=== PATIENT | male | born 1985 | race Caucasian/White ===

== ENCOUNTER 2023-06-08 09:49 | Emergency (ER) | payer MEDICARE, MEDICAID, SELFPAY ==
[2023-06-08] VITALS (26 sets, daily range): BP systolic 114–135; BP diastolic 52–83; PULSE 60–90; RESP 15–30; TEMP 36.8; O2SAT 93–98; BMI 48.8
--- NOTE | 2023-06-08 09:50 | ECG_ITS ---
The [facility] Test Date: 2023-06-08 Pat Name: BALJIT JURADO Department: Room: - Gender: Male Relief Cook: : 1985 Requested By: [id number] Order Number: [id number] Reading MD: DIO ALVAREZ Measurements Intervals [place] Rate: 73 P: 43 MI: 150 QRS: 30 QRSD: 90 T: 1 QT: 354 QTc: 380 Interpretive Statements 1100 Sinus rhythm 4068 Nonspecific [place] abnormality 8102 Low QRS voltage in chest leads 9130 borderline ECG No previous ECG available for comparison Electronically Signed On 06-09-2023 7:12:07 EDT by DIO ALVAREZ
--- NOTE | 2023-06-08 09:50 | XR_ITS ---
The [address] [address] Patient Name: BALJIT JURADO MRN: [id number] date: 1985 Sex: M Assigned Patient Location: ER Current Patient Location: ER Accession/Order Number: [id number] Exam Date: 06/08/2023 10:10 Report Date: 06/08/2023 10:24 At the request of: EZRA RAMAN Procedure: XR chest 1V EXAM: XR chest 1V HISTORY: cp COMPARISON: 09/21/2021. TECHNIQUE: Chest X-ray, 1 view. FINDINGS: Support devices: None. Lungs/pleura: Low volumes accentuate the lung markings. No definite consolidation, effusion, or pneumothorax. Heart and mediastinum: Stable contours compared to prior examination. Bones: No acute abnormality identified. XR/XR chest 1V IMPRESSION: Low lung volumes accentuate the lung markings; no definite active disease. Electronically authenticated by: DOMENICO HUSSEIN Date: 06/08/2023 10:24
--- NOTE | 2023-06-08 09:50 | ED.GENADUL1 ---
HPI - General Adult General Chief complaint: Chest Pain Stated complaint: CHEST PAIN Time Seen by Provider: 06/08/23 09:50 History of Present Illness HPI narrative: Presents to emergency department complaining of chest pain. Patient was brought in via EMS as he was at work and developed chest pain. Patient states he has a history of chronic chest pain for which he is seeing his primary care doctor and had a Holter monitor ordered last week. He does not have an appointment until next week to follow up on those results. Patient states the insurance is not in approving a stress test. He has a family history of heart disease. He denies any history of hypercholesterolemia. He denies any palpitations. He has a history of anxiety and he has been taking medication for it. Denies any recent fever, chills, or cough. He denies any shortness of breath. Denies any lower extremity edema, or cramping. He denies any nausea, vomiting, diarrhea, constipation, abdominal pain. Denies any flank pain, hematuria, dysuria. pain isn't exacerbated by exertion. Related Data Home Medications Medication Instructions Recorded Confirmed hydrochlorothiazide 12.5 mg tablet 12.5 mg PO QDAY 06/08/23 06/08/23 hydroxyzine HCl 25 mg tablet 25 mg PO Q8H PRN anxiety 06/08/23 06/08/23 lisinopril 10 mg tablet 10 mg PO QDAY 06/08/23 06/08/23 paliperidone 6 mg tablet,extended 6 mg PO QDAY 06/08/23 06/08/23 release 24 hr venlafaxine 37.5 mg 37.5 mg PO DAILY 06/08/23 06/08/23 capsule,extended release 24 hr (Effexor XR) Allergies Allergy/AdvReac Type Severity Reaction Status Date / Time No Known Drug Allergies Allergy Verified 06/08/23 09:51 Review of Systems ROS Status of ROS 10 or more systems reviewed and unremarkable except as noted in history and below PFSH PFSH Social History Smoking status: Former smoker Exam Narrative Exam Narrative: Nurses notes and vital signs reviewed and patient is not hypoxic. General: Nontoxic, Well-appearing and in no apparent distress. Skin: Warm, dry, no pallor noted. No Rash Head: Normocephalic, atraumatic. Neck: Supple, non-tender. Eye: Pupils are equal, round and EOMI. No scleral icterus. Ears, Nose, Mouth, and Throat: TM clear, no posterior oropharynx erythema or nasal mucosal hypertrophy, uvula is mid-line Oral mucosa is moist Cardiovascular: Regular Rate and Rhythm without murmur, gallop or rub. Respiratory: No accessory muscle use or respiratory distress. Lungs are clear to auscultation, no wheezing, rales or rhonchi Chest Wall: no tenderness Back: No midline thoracic or lumbar vertebral tenderness. No CVA tenderness Musculoskeletal: normal ROM, no calf or popliteal tenderness, no lower extremity edema/swelling GI: obese, Abdomen is soft, non-distended. Normal bowel sounds. No masses appreciated. No tenderness to palpation. No rebound, guarding, or rigidity noted. Neurological: A&O x4. No cranial nerve dysfunction observed. No truncal ataxia. Moves all extremities. Sensation intact. Psychiatric: Cooperative and interactive. Anxious Constitutional Vital Signs, click to edit/add: Last Vital Signs Temp 98.2 F 06/08/23 09:54 Pulse 74 06/08/23 11:10 Resp 18 06/08/23 11:10 BP 114/52 06/08/23 11:01 Pulse Ox 97 06/08/23 11:10 O2 Del Method Room Air 06/08/23 09:54 Course Vital Signs Vital signs: Vital Signs Blood Pressure 133/83 06/08/23 09:52 Temperature 98.2 F 06/08/23 09:54 Pulse Rate 74 06/08/23 11:10 Respiratory Rate 18 06/08/23 11:10 Blood Pressure 114/52 06/08/23 11:01 Pulse Oximetry 97 06/08/23 11:10 Oxygen Delivery Method Room Air 06/08/23 09:54 Medical Decision Making MDM Narrative Medical decision making narrative: EKG #1 shows sinus rhythm 73 bpm with T-wave inversion in lead 3. Normal axis, T-wave flattening and bilaterally. EKG #2 shows sinus rhythm at 67 beats per minutes. T-wave inversion in lead 3, T-wave flattening in the lateral leads, no acute ischemic changes. Normal axis. Patient remains chest pain-free in the emergency department. Lab results are unremarkable troponin without a delta. EKG did not show any acute ischemic changes. Patient is being worked up as an outpatient. He is advised to see the primary care doctor to obtain an echocardiogram and stress test.Patient's heart score is 2. At this time the patient is without objective evidence of an acute process requiring hospitalization or inpatient management. The patient has remained hemodynamically stable. No additional indication for emergent studies at this time. I answered all questions. Discussed discharge instructions including standard anticipatory guidance and what should prompt a return to the emergency department, including if they get worse are not getting better or develops any new or concerning symptoms. I've given them specific time frame in which to follow-up, and who to follow-up with. The patient demonstrates understanding. Patient is nontoxic and stable for discharge with outpatient follow-up. This note was created with the assistance of a speech recognition program. Although the intention is to generate documents that actually reflects the content of the visit, no guarantees can be provided that every mistake has been identified and corrected by editing. Lab Data Lab results reviewed: Yes I reviewed the patient's lab results Labs: Lab Results 06/08/23 06/08/23 Range/Units 10:06 11:23 WBC 5.7 (4.0-11.0) 10^3/uL RBC 5.26 (4.70-6.10) 10^6/uL Hgb 15.2 (14.0-18.0) g/dL Hct 45.4 (42.0-54.0) % MCV 86.3 (80.0-94.0) fL MCH 28.9 (25.9-34.0) pg MCHC 33.5 (29.9-35.2) g/dL RDW 13.2 (11.0-15.0) % Plt Count 230 (150-450) 10^3/uL MPV 9.5 (9.5-13.5) fL Neut % (Auto) 62.4 (43.0-75.0) % Lymph % (Auto) 28.1 (20.5-60.0) % [place] % (Auto) 6.7 (1.7-12.0) % Eos % (Auto) 2.1 (0.9-7.0) % Baso % (Auto) 0.5 (0.2-2.0) % Neut # (Auto) 3.6 (1.4-6.5) 10^3/uL Lymph # (Auto) 1.6 (1.2-3.8) 10^3/uL [place] # (Auto) 0.4 (0.3-0.8) 10^3/uL Eos # (Auto) 0.1 (0.0-0.7) 10^3/uL Baso # (Auto) 0.0 (0.0-0.1) 10^3/uL Abs Immat Gran (auto) 0.01 (0.00-0.03) 10^3/uL Imm/Tot Granulo (auto) 0.2 (0.0-0.5) % PT 9.8 (9.0-11.6) sec INR <0.93 APTT 26.7 (22.3-36.2) sec Sodium 139 (136-145) mmol/L Potassium 4.1 (3.5-5.1) mmol/L Chloride 103 (98-107) mmol/L Carbon Dioxide 26.9 (21.0-32.0) mmol/L Anion Gap 13.2 BUN 12.0 (7.0-18.0) mg/dL Creatinine 0.84 (0.70-1.30) mg/dL Est GFR ( Amer) >60 (>=60) Est GFR (Non-Af Amer) >60 (>=60) BUN/Creatinine Ratio 14.3 Glucose 110 H (74-106) mg/dL Calcium 9.0 (8.5-10.1) mg/dL Total Bilirubin 0.5 (0.2-1.0) mg/dL AST 37 (15-37) U/L ALT 77 H (16-63) U/L Alkaline Phosphatase 75 (46-116) U/L Troponin I High Sens 4.4 <4.0 L (4.0-76.1) pg/mL Total Protein 6.9 (6.4-8.2) g/dL Albumin 4.0 (3.4-5.0) g/dL Globulin 2.9 g/dL Albumin/Globulin Ratio 1.4 ECG Data Attestation: I personally reviewed and interpreted this ECG as follows: Discharge Plan Discharge Chief Complaint: Chest Pain Clinical Impression: Chest pain Patient Disposition: Home, Self-Care Time of Disposition Decision: 12:26 Condition: Good Mode of Transportation: Private Vehicle Prescriptions / Home Meds: No Action lisinopril 10 mg tablet 10 mg PO QDAY hydroxyzine HCl 25 mg tablet 25 mg PO Q8H PRN (Reason: anxiety) hydrochlorothiazide 12.5 mg tablet 12.5 mg PO QDAY paliperidone 6 mg tablet extended release 24hr 6 mg PO QDAY venlafaxine [Effexor XR] 37.5 mg capsule,extended release 24hr 37.5 mg PO DAILY Instructions: Chest Pain (ED) Stand Alone Forms: Portal Instructions Referrals: GIORGIO COHEN APRN [Physician] - 1 week
[2023-06-08 10:11] LABS: Basophils Percent Auto 0.5 % (0.2-2.0); Eosinophils Absolute Auto 0.1 10^3/uL (0.0-0.7); Eosinophils Percent Auto 2.1 % (0.9-7.0); Hematocrit 45.4 % (42.0-54.0); Hemoglobin 15.2 g/dL (14.0-18.0); Immature Granulocytes Abs Auto 0.01 10^3/uL (0.00-0.03); Immature Granulocytes Pct Auto 0.2 % (0.0-0.5); Lymphocytes Absolute Auto 1.6 10^3/uL (1.2-3.8); Lymphocytes Percent Auto 28.1 % (20.5-60.0); Mean Corpuscular HGB Conc 33.5 g/dL (29.9-35.2); Mean Corpuscular Hemoglobin 28.9 pg (25.9-34.0); Mean Corpuscular Volume 86.3 fL (80.0-94.0); Mean Platelet Volume 9.5 fL (9.5-13.5); Monocytes Absolute Auto 0.4 10^3/uL (0.3-0.8); Monocytes Percent Auto 6.7 % (1.7-12.0); Neutrophils Absolute Auto 3.6 10^3/uL (1.4-6.5); Neutrophils Percent Auto 62.4 % (43.0-75.0); Platelet Count 230 10^3/uL (150-450); Red Blood Count 5.26 10^6/uL (4.70-6.10); Red Cell Distribution Width 13.2 % (11.0-15.0); White Blood Count 5.7 10^3/uL (4.0-11.0)
[2023-06-08 10:28] LABS: Partial Thromboplastin Time 26.7 sec (22.3-36.2); Prothrombin Time 9.8 sec (9.0-11.6)
[2023-06-08 10:29] LABS: INR <0.93
[2023-06-08 10:49] LABS: Alanine Aminotransferase 77 U/L (16-63); Albumin Globulin Ratio 1.4; Alkaline Phosphatase 75 U/L (46-116); Anion Gap 13.2; Aspartate Amino Transferase 37 U/L (15-37); BUN Creatinine Ratio 14.3; Bilirubin Total 0.5 mg/dL (0.2-1.0); Carbon Dioxide 26.9 mmol/L (21.0-32.0); Chloride 103 mmol/L (98-107); Estimated GFR (African America >60 (>=60); Estimated GFR (Non-African Ame >60 (>=60); Globulin 2.9 g/dL; Glucose 110 mg/dL (74-106); Potassium 4.1 mmol/L (3.5-5.1); Sodium 139 mmol/L (136-145); Total Protein 6.9 g/dL (6.4-8.2); Troponin I High Sensitivity 4.4 pg/mL (4.0-76.1)
--- NOTE | 2023-06-08 11:09 | ECG_ITS ---
The [facility] Test Date: 2023-06-08 Pat Name: BALJIT JURADO Department: Room: - Gender: Male Clinical Data Analyst: : 1985 Requested By: Order Number: [id number] Reading MD: DIO ALVAREZ Measurements Intervals [place] Rate: 67 P: 49 MS: 154 QRS: 31 QRSD: 90 T: -2 QT: 366 QTc: 381 Interpretive Statements 1100 Sinus rhythm 8102 Low QRS voltage in chest leads 9120 atypical ECG Compared to ECG 06/08/2023 09:58:43 No significant changes Electronically Signed On 06-09-2023 7:12:48 EDT by DIO ALVAREZ
[2023-06-08 11:50] LABS: Troponin I High Sensitivity <4.0 pg/mL (4.0-76.1)
== END 2023-06-08 12:48 | disposition home or self-care (01) ==
PROVIDERS: Emergency Provider Emergency Medicine
DX: R07.9 Chest pain, unspecified (principal); Z79.899 Other long term (current) drug therapy; Z87.891 Personal history of nicotine dependence
CPT/HCPCS: 36415; 71045; 80053; 84484; 85025; 85610; 85730; 93005; 99285

== ENCOUNTER 2023-08-24 20:47 | Emergency (ER) | payer MEDICARE, MEDICAID, SELFPAY ==
[2023-08-24 20:56] VITALS: BP 128/78; PULSE 86; RESP 18; TEMP 36.9; O2SAT 95; BMI 46.9
--- NOTE | 2023-08-24 21:14 | PC.NURSE ---
Laceration to lower lip from tooth; small amount of bleeding at site
--- NOTE | 2023-08-24 21:22 | ED.GENADUL1 ---
HPI - General Adult General Chief complaint: Wound/Laceration Stated complaint: CUT TO LIP Time Seen by Provider: 08/24/23 21:01 Source: patient Mode of arrival: walk-in History of Present Illness HPI narrative: 37-year-old male presents with chief complaint of laceration to the bottom lower lip beneath the vermilion border. Patient states he accidentally tripped at home and cause a laceration to his lip. He did chip the dentition #26. He has a superficial laceration intraoral area of the lower lip as well. The injury occurred just prior to arrival. He has no other injury from the fall. He is alert and oriented. He is not up-to-date on tetanus immunization. Related Data Home Medications Medication Instructions Recorded Confirmed hydrochlorothiazide 12.5 mg tablet 12.5 mg PO QDAY 06/08/23 06/08/23 hydroxyzine HCl 25 mg tablet 25 mg PO Q8H PRN anxiety 06/08/23 06/08/23 lisinopril 10 mg tablet 10 mg PO QDAY 06/08/23 06/08/23 paliperidone 6 mg tablet,extended 6 mg PO QDAY 06/08/23 06/08/23 release 24 hr venlafaxine 37.5 mg 37.5 mg PO DAILY 06/08/23 06/08/23 capsule,extended release 24 hr (Effexor XR) Allergies Allergy/AdvReac Type Severity Reaction Status Date / Time No Known Drug Allergies Allergy Verified 08/24/23 20:59 Review of Systems ROS Narrative All Systems are negative except as noted/marked.All systems reviewed and otherwise negative PFSH PFSH Social History Smoking status: Former smoker Exam Narrative Exam Narrative: Nurses note and vital signs reviewed and patient is not hypoxic. General: The patient appears well and in no apparent distress. Patient is resting comfortably on cart. Skin: Warm, dry, no pallor noted. superficial laceration to lower lip beneath vermilion border Head: Normocephalic, atraumatic Eye: Normal conjunctiva, no drainage, EOMI. PERRL Ears, Nose, Mouth, and Throat: oral mucosa is moist. Nares patent. Mouth without vesicles. Ear canals patent. Tm's without Erythema Musculoskeletal: The patient has no evidence of calf tenderness, no pitting edema, symmetrical pulses noted bilaterally Neurological: A&O x4, normal speech Psychiatric: Cooperative Constitutional Vital Signs, click to edit/add: Last Vital Signs Temp 98.4 F 08/24/23 20:56 Pulse 86 08/24/23 20:56 Resp 18 08/24/23 20:56 BP 128/78 08/24/23 20:56 Pulse Ox 95 08/24/23 20:56 O2 Del Method Room Air 08/24/23 20:56 Course Vital Signs Vital signs: Vital Signs Temperature 98.4 F 08/24/23 20:56 Pulse Rate 86 08/24/23 20:56 Respiratory Rate 18 08/24/23 20:56 Blood Pressure 128/78 08/24/23 20:56 Pulse Oximetry 95 08/24/23 20:56 Oxygen Delivery Method Room Air 08/24/23 20:56 Temperature 98.4 F 08/24/23 20:56 Pulse Rate 86 08/24/23 20:56 Respiratory Rate 18 08/24/23 20:56 Blood Pressure 128/78 08/24/23 20:56 Pulse Oximetry 95 08/24/23 20:56 Oxygen Delivery Method Room Air 08/24/23 20:56 Medical Decision Making MDM Narrative Medical decision making narrative: Present with eczema laceration to the lower lip area. Cleaned with Hibiclens normal saline. Tissue glue was used to reapproximate the area. Patient is up-to-date on tetanus immunization. Patient was discharged home with tissue adhesive instructions and laceration instructions. All questions answered. Patient will follow-up primary care physician as needed. Differential Diagnosis Differential Diagnosis: Laceration, Dental injury Medical Records Medical records reviewed: Yes I reviewed the patient's medical records Discharge Plan Discharge Chief Complaint: Wound/Laceration Clinical Impression: Laceration Patient Disposition: Home, Self-Care Time of Disposition Decision: 21:21 Condition: Good Prescriptions / Home Meds: No Action lisinopril 10 mg tablet 10 mg PO QDAY hydroxyzine HCl 25 mg tablet 25 mg PO Q8H PRN (Reason: anxiety) hydrochlorothiazide 12.5 mg tablet 12.5 mg PO QDAY paliperidone 6 mg tablet extended release 24hr 6 mg PO QDAY venlafaxine [Effexor XR] 37.5 mg capsule,extended release 24hr 37.5 mg PO DAILY Instructions: Skin Adhesive Care (ED), Facial Laceration (ED) Stand Alone Forms: Portal Instructions Referrals: Physician,Non-Staff, MD [Primary Care Provider] - 1 week Discharge Date/Time: 08/24/23 21:39
[2023-08-24] MEDS: ADACEL DIPH,PERTUSS(ACELL),TET VAC/PF 0.5 ML ADULT SYRINGE IM (21:24)
== END 2023-08-24 21:39 | disposition home or self-care (01) ==
PROVIDERS: Emergency Provider Emergency Medicine
DX: S01.511A Laceration without foreign body of lip, initial encounter (principal); Z23 Encounter for immunization; W01.10XA Fall on same level from slipping, tripping and stumbling with subsequent striking against unspecified object, initial encounter; Z79.899 Other long term (current) drug therapy; Z87.891 Personal history of nicotine dependence
CPT/HCPCS: 12011; 90471; 90715; 99283